=== PATIENT | male | born 1955 | race Caucasian/White ===

== ENCOUNTER 2025-01-25 15:44 | Emergency (ER) | payer MEDICARE, SELFPAY ==
[2025-01-25] VITALS (25 sets, daily range): BP systolic 109–130; BP diastolic 55–84; PULSE 84–146; RESP 18–27; TEMP 36.3–36.9; O2SAT 92–99
--- NOTE | ~2025-01-25 | XR_ITS ---
CHEST RADIOGRAPH CLINICAL HISTORY: onset today, dizziness/ weakness . COMPARISON: None available TECHNIQUE: Single portable view of the chest. FINDINGS The cardiomediastinal silhouette is unremarkable. The lungs are clear. Visualized osseous structures and soft tissues are unremarkable. IMPRESSION: No focal infiltrate or effusion. Reviewed, dictated and finalized at location A.
--- NOTE | 2025-01-25 15:46 | ECG_ITS ---
Test Date: 2025-01-25 15:56:13 Measurements Intervals [place] Rate: 126 P: 35 PA: 158 QRS: -6 QRSD: 106 T: 33 QT: 325 QTc: 472 Interpretive Statements SINUS TACHYCARDIA WITH FREQUENT VENTRICULAR PREMATURE COMPLEXES VENTRICULAR COUPLET AND RUN OF VENTRICULAR TACHYCARDIA BASELINE ARTIFACT- I, II, AVR, AVL, AVF ABNORMAL ECG No previous ECG available for comparison Electronically Signed On 01-26-2025 06:25:00 CDT by Ridge Hernandez D.O.
--- NOTE | 2025-01-25 15:52 | ED_ITS ---
HPI - Arrhythmia/Palpitations General Chief Complaint: Dizziness Stated Complaint: reaction to meds Time Seen by Provider: 01/25/25 15:46 Source: patient Mode of arrival: ambulatory Limitations: no limitations History of Present Illness HPI narrative: Patient is a 69-year-old male with new onset palpitations and dizziness after he started taking a new BPH medication. Today was his 1st dose. It started a few hours after starting the dose and having the symptoms. No chest pain or shortness of breath. MD complaint: rapid heart beat, heart racing and palpitations Onset (ago): day(s) ( One) Duration: constant Severity: mild Context: occurred during rest, occurred during exertion and change in medication ( new BPH medicine correlates time frame with symptoms) Arrhythmia history: other ( none) Associated symptoms: denies other symptoms Treatments prior to arrival: other ( none) Related Data Allergies Allergy/AdvReac Type Severity Reaction Status Date / Time diphenhydramine (From Allergy Intermediate Hives Verified 01/25/25 15:50 Benadryl) Sulfa (Sulfonamide Allergy Intermediate Rash Verified 01/25/25 15:50 Antibiotics) Review of Systems 2 Review of Systems: All systems reviewed & are unremarkable except as noted in HPI and below Constitutional: Constitutional: Reports no additional constitutional complaints Eyes: Eyes: Reports no additional eye complaints ENT: Reports system reviewed and no additional complaints, except as documented Cardiovascular: Cardiovascular: Reports no additional cardiovascular complaints Respiratory: Respiratory: Reports no additional respiratory complaints Gastrointestinal: Gastrointestinal: Reports no additional gastrointestinal complaints Genitourinary: Genitourinary: Reports no additional male genitourinary complaints Musculoskeletal: Musculoskeletal: Reports no additional musculoskeletal complaints Integumentary/Breasts: Skin/Breast: Reports system reviewed and no additional complaints, except as docu Neurologic: Reports system reviewed and no additional complaints, except as documented Psychiatric: Psychiatric: Reports no additional psychiatric complaints Endocrine: Endocrine: Reports no additional endocrine complaints Hematologic/Lymphatic: Hematologic/Lymphatic: Reports no additional hematologic/lymphatic complaints Allergic/Immunologic: Allergic/Immunologic: Reports no additional allergic/immunologic complaints Exam 2 Const: General: healthy appearing Nutritional Appearance: well nourished Orientation/consciousness: patient oriented x3 Limitations: no limitations HENMT: Head: normal to inspection Ears: external ears normal F zohaib/Nose/Sinus: Normal external nose present Eyes: Conjunctivae: conjunctivae normal Pupils: Equal, round and reactive pupils present EOM: EOMs intact bilaterally Neck: Neck: normal visual inspection Chest: Chest palpation & inspection: normal inspection of the chest Resp: Effort & Inspection: normal respiratory effort and not labored A uscultation: clear to auscultation bilaterally and no crackles Cardio: Rate: tachycardic Rhythm: regular rhythm Heart sounds: Murmur heart sound present ( known) GI: Inspection: non-distended GI Palp: Yes Soft to palpation and No Tenderness to palpation present (GI) Auscultation: normal bowel sounds : General: Yes bladder normal to palpation Back/Spine/Pelvis: Back: no CVA tenderness Skin: General skin exam: normal color Rashes: no rashes Wounds: no wounds Neuro: General: patient oriented x3 Cranial nerves: Yes Nystagmus not present Speech: normal speech Gait exam (Neuro): Normal gait present Extrem: General: normal to inspection Psych: Mental Status: mental status grossly normal Affect: normal affect Attitude: cooperative Course Vital Signs Vital signs: Vital Signs Temperature 36.3 C L 01/25/25 15:46 Pulse Rate 84 01/25/25 15:46 Respiratory Rate 18 01/25/25 15:46 Blood Pressure 117/84 01/25/25 15:46 Pulse Oximetry 98 01/25/25 15:46 Oxygen Delivery Room Air 01/25/25 15:46 Temperature 36.3 C L 01/25/25 15:46 Pulse Rate 106 H 01/25/25 17:25 Respiratory Rate 19 01/25/25 16:16 Blood Pressure 118/55 L 01/25/25 16:16 Pulse Oximetry 98 01/25/25 16:16 Oxygen Delivery Room Air 01/25/25 15:46 MDM - Arrhythmia/Palpitations MDM Narrative Medical decision making narrative: patient is a 69-year-old male with palpitations and dizziness after starting his new BPH medication today. We will do a cardiovascular workup at this time. patient is having bigeminy and trigeminy and wide complex tachycardia mixed with normal sinus rhythm; we will call Cardiology for further evaluation and planning. Cardiology at [facility] suggested Toprol 50 mg daily and follow up with their group in the next week for ultrasound echocardiogram. Lab Data Attestation: I reviewed the patient's lab results. 01/25/25 16:29 01/25/25 16:29 Labs: Lab Results 01/25/25 Range/Units 16:29 WBC 10.5 (4.8-10.8) K/mm3 RBC 4.22 L (4.70-6.10) M/mm3 Hgb 13.1 (12.4-15.3) g/dL Hct 39.8 (37.0-46.0) % MCV 94.3 (78.0-102.0) fL MCH 31.0 (27.0-31.0) pg MCHC 32.9 (32-36) g/dL RDW 13.1 (11.6-14.4) % Plt Count 204 (150-420) K/mm3 MPV 9.9 (8.7-11.0) fl Immature Gran % (Auto) 0.6 H (0.0-0.0) % Neut % (Auto) 69.6 (50.0-70.0) % Lymph % (Auto) 20.8 (18.0-42.0) % Glenn % (Auto) 7.3 (2.0-11.0) % Eos % (Auto) 0.8 L (1.0-6.0) % Baso % (Auto) 0.9 (0.0-1.0) % Lymph # (Auto) 2.18 (1.10-4.50) K/mm3 Glenn # (Auto) 0.76 (0.10-0.90) K/mm3 Eos # (Auto) 0.08 (0.02-0.50) K/mm3 Baso # (Auto) 0.09 (0.00-0.10) K/mm3 Abs Immat Gran (auto) 0.06 H (0.00-0.00) K/mm3 Absolute Neuts (auto) 7.30 H (1.70-7.20) K/mm3 Absolute Nucleated RBC 0.00 (0.00-0.00) K/mm3 Nucleated RBC % 0.0 (0-0.0) % PT 11.1 (9.50-12.1) Seconds INR 1.0 APTT 24.8 (23.9-30.70) Sec Sodium 139 (136-145) mmol/L Potassium 4.0 (3.5-5.1) mmol/L Chloride 103 (98-108) mmol/L Carbon Dioxide 28 (21-32) mmol/L Anion Gap 8 (4-12) mmol/L BUN 15 (7-18) mg/dL Creatinine 1.11 (0.70-1.30) mg/dL Estim Creat Clear Calc 56 ml/min Estimated GFR > 60 (59 - ) Glucose 113 H (70-99) mg/dL Calculated Osmolality 289 (285-295) mOsm/kg Calcium 8.8 (8.5-10.1) mg/dL Magnesium 2.0 (1.8-2.4) mg/dL Total Bilirubin 0.6 (0.00-1.00) mg/dL AST 18 (15-37) U/L ALT 29 (16-63) U/L Alkaline Phosphatase 87 (46-116) U/L Troponin I 6.9 (0.00-60.4) ng/L NT-Pro-B Natriuret Pep 89 (0-125) pg/mL Total Protein 6.9 (6.4-8.2) g/dL Albumin 3.8 (3.4-5.0) g/dL Urine Color Yellow (Yellow) Urine Appearance Clear (Clear) Urine pH 6.0 (5.0-8.0) Ur Specific [place] 1.015 (1.010-1.020) Urine Protein Negative (Negative) Urine Glucose (UA) Negative (Negative) Urine Ketones 1+ H (Negative) Ur Blood (Man) Negative (Negative) Urine Nitrate Negative (Negative) Urine Bilirubin Negative (Negative) Urine Urobilinogen 0.2 (0.2-1.0) mg/dL Leukocyte Esterase Rfl Negative (Negative) AR/UL Imaging Data Attestation: I personally reviewed and interpreted this imaging study as follows: Radiologist's impression: Chest x-ray is negative for acute process ECG Data EKG #1: Attestation: I personally reviewed and interpreted this ECG as follows: ECG completion date: 01/25/25 ECG completion time: 16:03 Interpretation: patient is having normal sinus rhythm to bigeminy to trigeminy and wide complex tachycardia back to normal sinus rhythm; we will discuss with Cardiology EKG Interpretation: tachycardia, ventricular tachycardia, PVCs ( bigeminy and trigeminy and wide complex tachycardia), non-specific ST changes, normal QRS, widened QRS, normal QT and left axis Discharge Plan Discharge Clinical Impression: Ventricular bigeminy Arrhythmia Qualifiers: Arrhythmia type: unspecified cardiac arrhythmia Qualified Code(s): I49.9 - Cardiac arrhythmia, unspecified Patient Disposition: Home, Self-Care Condition: Stable Instructions: Heart Palpitations (DC), Premature Ventricular Contractions (ED) Additional Instructions: Please follow-up with the primary doctor in the next week. Please follow-up with [facility] Cardiology in the next week. You need an ultrasound of the heart which they will order for you at the appointment. You are on new blood pressure medicine at this time to stop the palpitations. I would go ahead and stop the new urology medicine and have them change it to a different variety. Patient Language: Stateless Prescriptions: New metoprolol succinate [Toprol XL] 50 mg tablet extended release 24 hr 50 mg PO DAILY Qty: 30 0RF Follow-up/Referrals: UNKNOWN,DOCTOR [Non-Staff] - Time of Disposition: 17:59
[2025-01-25] MEDS: SODIUM CHLORIDE 0.9% IV 1,000 ML 999 ML IV CONT (16:08)
--- OUTSIDE RECORDS SUMMARY | 2025-01-25 16:21 | XMS_ITS | Encounter Summary ---
Author Organization [facility] Address [address] [address] Phone Care Team Providers Care Nail Artist Name Role Phone Hank Cheng MD Primary Care Provider [phone] Bronson Pham APRN, [employer] Unavailable [phone] Lurdes Jin MD Unavailable [phone] Reason for Visit * Reason Comments Medication Refill Encounter Details Date Type Department Care Team (Late st Contact Info) Description 01/28/2024 Refill [facility] - Internal Medicine - [place] [address] [place] [id number] Hank Cheng MD [address] [place] [address] Medication Refill Social History Tobacco Use Types Packs/Day Years Used Date Smoking Tobacco: Never Passive Smoke Exposure: Never Smokeless Tobacco: Never Alcohol Use Standard Drinks/Week Comments Not Currently 0 (1 standard drink = 0.6 oz pur e alcohol) [facility] Utilities Answer Date Recorded In the past 12 months has [employer] - [employer], [employer], oil, or water [employer] threatened to shut off services in your home? No 01/10/2024 Social Connection and Isolat ion Panel [NHANES] Answer Date Recorded In a typical week, how many times do you talk on the phone with family, friends, or neighbors? More than three times a week 01/10/2024 How often do you get togethe r with friends or relatives? More than three times a week 01/10/2024 How often do you attend chur or synagogue services? Never 01/10/2024 Do you belong to any clubs o r organizations such as scientologist groups, unions, fraternal or athletic groups, or school groups? No 01/10/2024 How often do you attend meet ings of the clubs or organizations you belong to? Never 01/10/2024 Are you , , di vorced, , never , or living with a partner? 01/10/2024 AUDIT-C Answer Date Recorded Q1: How often do you have a drink containing alcohol? Never 01/10/2024 Q2: How many drinks containi ng alcohol do you have on a typical day when you are drinking? Patient does not drink Q3: How often do you have si x or more drinks on one occasion? Never 01/10/2024 Overall Financial Resource Strain (CARDIA) Answe r Date Recorded How hard is it for you to pa y for the very basics like food, housing, medical care, and heating? Not hard at all 01/10/2024 PHQ-2 Answer Date Recorded Total Score - Questions 1-9 0 12/21 [facility] - Occupational Stress Questionnaire Answer Date Recorded Do you feel stress - tense, restless, nervous, or anxious, or unable to sleep at night because your mind is troubled all the time - these days? Not at all 01/10/2024 Exercise Vital Sign Answer Date Recorde d On average, how many days pe r week do you engage in moderate to strenuous exercise (like a brisk walk)? 0 days 01/10/2024 On average, how many minutes do you engage in exercise at this level? 0 min 01/10/2024 Hunger Vital Sign Answer Date Recorded Within the past 12 months, y ou worried that your food would run out before you got the money to buy more. Never true 01/10/20 24 Within the past 12 months, t he food you bought just didn't last and you didn't have money to get more. Never true 01/10/2024 PRAPARE - Transportation Answer Date Re corded In the past 12 months, has l ack of transportation kept you from medical appointments or from getting medications? No 12/21 In the past 12 months, has l ack of transportation kept you from meetings, work, or from getting things needed for daily living? No 01/10/2024 Housing Stability Vital Sign Answer Jeff e Recorded In the last 12 months, was t here a time when you were not able to pay the mortgage or rent on time? No 01/10/2024 In the last 12 months, how many places have you lived? 2 01/10/2024 In the last 12 months, was t here a time when you did not have a steady place to sleep or slept in a assisted (including now)? No 01/10/2024 Sexually Active Control Partners Comments Not Currently Sex and Gender Information Value Date Recorded Sex Assigned at Not on file Legal Sex Male 7:42 PM CDT Gender Identity Not on file Sexual Orientation Not on file documented as of this encounter Miscellaneous Notes * Telephone Encounter - Kourtney Rocha RN - 01/28/2024 1:04 PM CDT Medication(s) refilled and signed per [facility] Chronic Medication Refill Standing Order for Pediatricand Adult Patients. Requested Prescriptions Pending Prescriptions Disp Refills omeprazole (PriLOSEC) 20 MG CAPSULE DELAYED RELEASE [Pharmacy Med Name: OMEPRAZOLE 20MG CAPSULE DR]90 Capsule 1 Sig: TAKE ONE (1) CAPSULE BY MOUTH DAILY. Proton Pump Inhibitors Protocol Passed - 01/28/2024 12:11 PM Passed - Visit with relevant provider in past 12 months or upcoming 90 days Recent Visits Date Type Provider Dept 01/10/24 Office Visit Hank Cheng MD [facility] 07/18/23 Office Visit Sheron Bal PAC [facility] 05/16/23 Office Visit Hank Cheng MD [facility] Showing recent visits within past 365 days and meeting all other requirements Future Appointments No visits were found meeting these conditions. Showing future appointments within next 90 days and meeting all other requirements Refused Prescriptions Disp Refills tadalafil (CIALIS) 20 MG Tablet [Pharmacy Med Name: TADALAFIL 20MG TABLET] 10 Tablet 2 Si/2- 1 TAB BY MOUTH EVERY 3 DAYS NEEDED FOR ERECTION Erectile Dysfunction Medication Protocol Failed - 01/28/2024 12:11 PM Failed - Active on medication list Failed - Absence of nitrates on med list Failed - Erectile dysfunction on problem list Passed - Visit with relevant provider in past 12 months or upcoming 90 days Recent Visits Date Type Provider Dept 01/10/24 Office Visit Hank Cheng MD [facility] 07/18/23 Office Visit Sheron Bal PAC [facility] 05/16/23 Office Visit Hank Cheng MD [facility] Showing recent visits within past 365 days and meeting all other requirements Future Appointments No visits were found meeting these conditions. Showing future appointments within next 90 days and meeting all other requirements documented in this encounter Plan of Treatment Upcoming Encounters Date Type Department Care Team (Late st Contact Info) Description 05/01/2025 9:45 AM CDT Office Visit [facility] [address] [place] [address] Lurdes Jin MD [address] [address] 07/15/2025 11:30 AM CDT Office Visit [facility] - Internal Medicine [place] [address] [place] [id number] Hank Cheng MD [address] [place] [address] documented as of this encounter Visit Diagnoses Not on filedocumented in this encounter Additional Health Concerns Assessment Noted Time PHQ-9 Depression Total Score: 0 01/10/20 9:41 AM CDT documented as of this encounter Care Teams Nail Artist Relationship Specialty Start Date End Date Hank Cheng MD [address] [place] [address] PCP - General Internal Medicine 08/24/20 Bronson Pham, MATHS TUTOR, [employer] [address] [place] [address] Nurse Practitioner Advanced Practice Nurse 08/21/24 Lurdes Jin MD [address] [facility] [address] [place] [address] Consulting Physician Urology 01/22/25 documented as of this encounter
--- OUTSIDE RECORDS SUMMARY | 2025-01-25 16:21 | XMS_ITS | Clinical Summary ---
Author Organization [facility] Address [address] [address] Phone Care Team Providers Care Chain Saw Driver Name Role Phone Hank Cheng MD Primary Care Provider [phone] Bronson Pham APRN, LOCUM TENENS PSYCHIATRIST Unavailable [phone] Lurdes Jin MD Unavailable [phone] Allergies Active Allergy Reactions Criticality Noted Date Comments Diphenhydramine Rash 06/19/2011 Hydroxyzine Other (see Comments) 08/26/2024 Constipate pt Metoclopramide Unknown 08/26/2024 Constipate Sulfa Antibiotics Rash Medium 06/19/2011 Other reaction(s): Flushing (skin), Wheezing Zinc Other (see Comments) 08/26/2024 Rash Medications albuterol 108 (90 Base) MCG/ACT Aerosol Solution take 2 Puffs by inhalation every 4 hours as needed for Wheezing. 18 g 08/24/20 20 Active aspirin EC 81 MG Tablet Delayed Response Take 81 mg by mouth. Active Multiple Vitamin (MULTI-VITAMIN PO) Take by mouth. Activ e Ascorbic Acid (VITAMIN C PO) Take by mouth. Active nitroGLYCERIN (NITROSTAT) 0.3 MG SL Tablet 1 Tablet by Sublingual route every 5 minutes as needed for Chest pain. 20 Tablet 09/12/20 21 Active Vitamin E (TOCOPHEROL) 90 MG (200 UNIT) Capsule Take 90 mg by mouth daily. Active tadalafil (CIALIS) 20 MG Tablet Take 1 Tablet by mouth every 72 hours as needed for Erectile Dysfunction. 10 Tablet 5 01/31/20 24 Active omeprazole (PriLOSEC) 20 MG CAPSULE DELAYED RELEASE TAKE ONE (1) CAPSULE BY MOUTH DAILY. 90 Capsule 1 08/08/20 24 Active tamsulosin (FLOMAX) 0.4 MG CapsuleIndicat ions:Elevated PSA,Incomplete bladder emptying Take 1 Capsule by mouth daily. 30 Capsule 1 08/26/20 24 Active rosuvastatin (CRESTOR) 5 MG Tablet TAKE ONE TABLET BY MOUTH EVERY EVENING 90 Tablet 1 01/07/20 25 Active losartan (COZAAR) 25 MG Tablet TAKE ONE (1) TABLET BY MOUTH DAILY. 90 Tablet 1 01/07/20 25 Active alfuzosin (UROXATRAL) 10 MG TABLET SR 24 HR Take 1 Tablet by mouth daily (with breakfast) for 30 days. 30 Tablet 01/24/20 25 025 Active rosuvastatin (CRESTOR) 5 MG Tablet TAKE ONE TABLET BY MOUTH EVERY EVENING 90 Tablet 1 03/14/20 24 025 Discontinued losartan (COZAAR) 25 MG Tablet TAKE ONE (1) TABLET BY MOUTH DAILY. 90 Tablet 1 10/16/20 24 025 Discontinued Active Problems Problem Noted Date Diagnosed Date Elevated PSA 01/12/2025 Essential hypertension, benign 08/16/2022 Mild intermittent asthma without complication Overview (04/26/2021): Continue p.r.n. albuterol. Gastro-esophageal reflux disease without esophag itis 05/17/2017 Other hyperlipidemia 06/19/2011 Resolved Problems Problem Noted Date Diagnosed Date Resolved Date Acute bronchitis 01/10/2024 01/10/2024 Dyspnea 08/31/2020 10/25/2020 Mild persistent asthma without complication 08/31/2020 04/26/2021 Encounters Date Type Department Care Team Description 01/23/2025 12:45 PM CDT Office Visit [facility] [place] [address] Lurdes Jin MD Elevated PSA (Primary Dx) Discharge Disposition: Discharged to home or Selfcare 01/23/2025 Travel 01/20/2025 Telephone [facility] [address] [place] [address] Lurdes Jin MD 01/12/2025 11:15 AM CDT [facility] Visit [facility] [address] [place] [address] Hank Cheng MD Essential hypertension, benign (Primary Dx); Other hyperlipidemia; Mild intermittent asthma without complication; Gastro-esophageal reflux disease without esophagitis; Elevated PSA Discharge Disposition: Discharged to home or Selfcare 01/12/2025 Travel 01/07/2025 Telephone [facility] [address] [place] [address] Lurdes Jin MD 01/06/2025 Refill [facility] Internal Medicine [facility] [address] [place] [address] Sheron Bal PAC Medication Refill from Last 3 Months Immunizations Immunization Administration Dates Next Due Covid-19, Mrna, Lnp-s, PF, 1 00 mcg/0.5 mL Dose (Moderna) 02/23/2021 Influenza Vaccine 07/07/2013 Influenza Vaccine, Quadrivalent, PF 08/16/2022 Influenza, Quadrivalent, Adjuvanted 07/18/2023 Influenza, Trivalent, Adjuvanted, PF 07/16/2024 Pneumococcal conjugate PCV20 , polysaccharide [id number] conjugate, adjuvant, PF 08/16/2022 TDAP Vaccine 11/26/2023 Family History Relation Name Status Comments Father Mother Social History Tobacco Use Types Packs/Day Years Used Date Smoking Tobacco: Never Passive Smoke Exposure: Never Smokeless Tobacco: Never Tobacco Cessation:Counseling Given: Not Answered Alcohol Use Standard Drinks/Week Comments Not Currently 0 (1 standard drink = 0.6 oz pur e alcohol) [facility] [employer] Answer Date Recorded In the past 12 months has [employer], gas, oil, or water [employer] threatened to shut off services in your [...] 01/10/2024 How often do you attend chur ch or jainism services? Never 01/10/2024 Do you belong to any clubs o r organizations such as gnosticism groups, unions, fraternal or athletic groups, or [...] Total Score - Questions 1-9 0 12/21 [facility] - Occupational Stress Questionnaire Answer Date Recorded [...] medical appointments or from getting medications? No 03/2 10/2023 In the past 12 months, has l [...] place to sleep or slept in a group home (including now)? No 01/10/2024 Sexually Active Control Partners Comments Not Currently Sex and Gender Information Value Date Recorded Sex Assigned at Not on file Legal Sex Male 7:42 PM CDT Gender Identity Not on file Sexual Orientation Not on file Last Filed Vital Signs Vital Sign Reading Time Taken Comments Blood Pressure 161/83 01/23/2025 12:47 PM CDT Pulse 74 01/23/2025 12:47 PM CDT Temperature 36.6 C (97.9 F) 01/12/2025 11:03 AM CDT Respiratory Rate 14 01/23/2025 12:47 PM CDT Oxygen Saturation 96% 01/23/2025 12:47 PM CDT Inhaled Oxygen Concentration - - Weight 88.9 kg (196 lb) 01/23/2025 12:47 PM CDT Height 165.1 cm (5' 5 ) 01/23/2025 12:47 PM CDT Body Mass Index 32.62 01/23/2025 12:47 PM CDT Plan of Treatment Upcoming Encounters Date Type Department Care Team (Late st Contact Info) Description 05/01/2025 9:45 AM CDT Office Visit [facility] [address] [place] [address] Lurdes Jin MD [address] [address] 07/15/2025 11:30 AM CDT [facility] Visit [facility] [place] [address] [place] [address] Hank Cheng MD [address] [place] [address] Health Maintenance Due Date Last Done Comments Hepatitis C Virus (HCV) Screening 1955 Cologuard 2003 Immunochemical Fecal Occult Blood 2003 SARS-COV-2 Immunization ( season) 2025 08/13/2024, 11/02/2021, 03/23/2021, Additional history exists Colonoscopy 06/04/2029 06/04/2019, 06/04/2019 Colorectal Cancer Screening 06/04/2029 Td Immunization Every 10 Years (Adults With 1 Tdap) 11/26/2033 11/26/2023 06/04/2019, 06/04/2019 Pneumococcal Immunization (50+ years) Completed 08/16/2022 Pneumococcal Immunization Combined Discontinued 08/16/2022 Zoster Immunization Completed 07/18/2023, 3 DTaP/Tdap/Td Immunization Discontinued 11/26/2023 Influenza Immunization Completed 4, 07/18/2023, 08/16/2022, Additional history exists Respiratory Syncytial Virus (RSV) Immunization (Adult) Completed 07/18/2024 PSA Discussion Discontinued 09/16/2024, 06/2024, 08/17/2022, Additional history exists Hepatitis B Immunization Aged Out No longer eligible based on patient's age to complete this topic Meningococcal Immunization (ACWY) Aged Out No longer eligible based on patient's age to complete this topic Rotavirus Immunization Aged Out No lo nger eligible based on patient's age to complete this topic Procedures Procedure Name Priority Date/Time Associated Diagnosis Comments PSA DIAGNOSTIC,TOTAL Routine 09/16/2024 8:32 AM ZONE SUPERVISOR FIREARMS Elevated PSA HM COLONOSCOPY Routine 06/04/2019 from Last 3 Months or Most Recently Relevant to Health Maintenance Results * (ABNORMAL) PSA DIAGNOSTIC,TOTAL (09/16/2024 8:32 AM ZONE SUPERVISOR FIREARMS) PSA, TOTAL (PROSTATIC SPECIFIC ANTIGEN) 7.85(H) <4.00 ng/mL 09/16/2024 4:00 PM ZONE SUPERVISOR FIREARMS [facility] Blood Venipuncture / Unknown 09/16/2024 8:32 AM ZONE SUPERVISOR FIREARMS 09/16/2024 8:32 AM ZONE SUPERVISOR FIREARMS Narrative [facility] - 09/16/2024 4:00 PM ZONE SUPERVISOR FIREARMS PSA NOTE: The PSA value should be used in conjunction with information available from clinical evaluation and other diagnostic procedures. The [employer] Total PSA assay is a Chemiluminescent Microparticle Immunoassay (CMIA) for the quantitative determination of total PSA (both free PSA and PSA complexed to [id number]) in human serum. Total PSA values obtained with different assay methods, including St PSA assays, cannot be used interchangeably. us Bronson Pham APRN, LOCUM TENENS PSYCHIATRIST CHEMISTRY ORDERABLES F inal Result [facility] [place] [address] * COLONOSCOPY (06/04/2019) Hank Cheng MD PROCEDURE/MINOR SURGICAL OR DERABLES Final Result from Last 3 Months or Most Recently Relevant to Health Maintenance Insurance MEDICARE C AETNA Care Teams Chain Saw Driver Relationship Specialty Start Date End Date Hank Cheng MD [address] [place] [address] PCP - General Internal Medicine 08/24/20 Bronson Pahm APRN, LOCUM TENENS PSYCHIATRIST [address] [place] [address] Nurse Practitioner Advanced Practice Nurse 08/21/24 Lurdes Jin MD [address] [address] Consulting Physician Urology 01/22/25
--- OUTSIDE RECORDS SUMMARY | 2025-01-25 16:21 | XMS_ITS | Encounter Summary ---
Author Organization [facility] Address [address] [place] [address] Phone Care Team Providers Care Hr Clerk Name Role Phone Hank Cheng MD Primary Care Provider [phone] Bronson Pham APRN, DEPUTY HEAD Unavailable [phone] Lurdes Jin MD Unavailable [phone] Reason for Visit * Reason Comments Medication Refill Encounter Details Date Type Department Care Team (Late st Contact Info) Description 03/12/2024 Refill [facility] [place] [address] [place] [address] Hank Cheng MD [address] [place] [address] Medication Refill Social History Tobacco Use Types Packs/Day Years Used Date Smoking Tobacco: Never Passive Smoke Exposure: Never Smokeless Tobacco: Never Alcohol Use Standard Drinks/Week Comments Not Currently 0 (1 standard drink = 0.6 oz pur e alcohol) [facility] Utilities Answer Date Recorded In the past 12 months has [employer], [employer], oil, or water [employer] threatened to shut off services in your [...] How often do you attend chur or rastafarian services? Never 01/10/2024 Do you belong to any clubs o r organizations such as druze groups, unions, fraternal or athletic groups, or [...] Total Score - Questions 1-9 0 12/21 [facility] - Occupational Stress Questionnaire Answer Date Recorded [...] place to sleep or slept in a nursing home (including now)? No 01/10/2024 Sexually Active Control Partners Comments Not Currently Sex and Gender Information Value Date Recorded Sex Assigned at Not on file Legal Sex Male 7:42 PM CDT Gender Identity Not on file Sexual Orientation Not on file documented as of this encounter Miscellaneous Notes * Telephone Encounter - Kourtney Rocha RN - 03/13/2024 8:39 AM CDT Medication failed the protocol, provider to review and approve the medication order if appropriate. Requested Prescriptions Pending Prescriptions Disp Refills rosuvastatin (CRESTOR) 5 MG Tablet [Pharmacy Med Name: ROSUVASTATIN CALCIUM 5MG TABLET] 90 Tablet 1 Sig: TAKE ONE TABLET BY MOUTH EVERY EVENING Hmg CoA Reductase Inhibitors Protocol Failed - 03/12/2024 6:44 PM Failed - Lipid panel in past 12 months LDL Date Value Ref Range Status 08/17/2022 93 0 - 130 mg/dL Final Failed - CMP in past 12 months No results found for: SODIUM , POTASSIUM , CHLORIDE , CO2VEN , ANIONGAP , GLUCOSE , BUN , CREATININE , BCRATIO8 , TOTALPROTEIN , ALBUMIN , AGRT , AGRATIO , CALCIUM , TBIL , SGOTAST , SGPTALT , ALKALINEPHO , GFRNA , GFRA , GFRES , CMPREQFAST , CMPFAST Passed - Visit with relevant provider in past 12 months or upcoming 90 days Recent Visits Date Type Provider Dept 01/10/24 Office Visit [facility] 07/18/23 Office Visit Sheron Bal PAC [facility] 05/16/23 Office Visit Hank Cheng MD [facility] Showing recent visits within past 365 days and meeting all other requirements Future Appointments No visits were found meeting these conditions. Showing future appointments within next 90 days and meeting all other requirements documented in this encounter Plan of Treatment Upcoming Encounters Date Type Department Care Team (Late st Contact Info) Description 05/01/2025 9:45 AM CDT Office Visit [facility] [address] [place] [address] Lurdes Jin MD [address], [facility] [address] [place] [address] 07/15/2025 11:30 AM CDT Office [facility] [address] [place] [address] Hank Cheng MD [address] [place] [address] documented as of this encounter Visit Diagnoses Not on filedocumented in this encounter Additional Health Concerns Assessment Noted Time PHQ-9 Depression Total Score: 0 01/10/20 24 9:41 AM CDT documented as of this encounter Care Teams Hr Clerk Relationship Specialty Start Date End Date Hank Cheng MD [address] [place] [address] PCP - General Internal Medicine 08/24/20 Bronson Pham APRN, DEPUTY HEAD [address] [place] [address] Nurse Practitioner Advanced Practice Nurse 08/21/24 Lurdes Jin MD [address], [facility] [address] [place] [address] Consulting Physician Urology 01/22/25 documented as of this encounter
--- OUTSIDE RECORDS SUMMARY | 2025-01-25 16:21 | XMS_ITS | Encounter Summary ---
Author Organization [facility] Address [address] [place] [address] Phone Care Team Providers Care Sales And Marketing Intern Name Role Phone Hank Cheng MD Primary Care Provider [phone] Bronson Pham APRN, FLAT SHEET MAKER Unavailable [phone] Lurdes Jin MD Unavailable [phone] Encounter Details Date Type Department Care Team (Late st Contact Info) Description 01/20/2025 Telephone [facility] [address] [place] [address] Lurdes Jin MD [address] [address] Social History Tobacco Use Types Packs/Day Years Used Date Smoking Tobacco: Never Passive Smoke Exposure: Never Smokeless Tobacco: Never Alcohol Use Standard Drinks/Week Comments Not Currently 0 (1 standard drink = 0.6 oz pur e alcohol) [facility] Utilities Answer Date Recorded In the past 12 months has [employer], gas, oil, or water [employer] threatened to shut off services in your [...] often do you attend chur ch or alevism services? Never 01/10/2024 Do you belong to any clubs o r organizations such as christianity groups, unions, fraternal or athletic groups, or [...] Total Score - Questions 1-9 0 12/21 [facility] - Occupational Stress Questionnaire Answer Date [...] on file documented as of this encounter Plan of Treatment Upcoming Encounters Date Type Department Care Team (Late st Contact Info) Description 05/01/2025 9:45 AM CDT Office Visit [facility] [address] [place] [address] Lurdes Jin MD #[address] [address] 07/15/2025 11:30 AM CDT Office Visit [facility] [place] [address] [place] [address] Hank Cheng MD [address] [place] [address] documented as of this encounter Visit Diagnoses Not on filedocumented in this encounter Additional Health Concerns Assessment Noted Time PHQ-9 Depression Total Score: 0 01/13/20 25 11:05 AM CDT documented as of this encounter Care Teams Sales And Marketing Intern Relationship Specialty Start Date End Date Hank Cheng MD [address] [place] [address] PCP - General Internal Medicine 08/24/20 Bronson Pham, FINANCIAL PROCESSING CLERK, FLAT SHEET MAKER [address] [place] [address] Nurse Practitioner Advanced Practice Nurse 08/21/24 Lurdes Jin MD [address], [facility] [address] [place] [address] Consulting Physician Urology 01/22/25 documented as of this encounter
--- OUTSIDE RECORDS SUMMARY | 2025-01-25 16:21 | XMS_ITS | Encounter Summary ---
Author Organization [facility] Address [address] [place] [address] Phone Care Team Providers Care Visitor Information Assistant Name Role Phone Hank Cheng MD Primary Care Provider [phone] Bronson Pham APRN, CERTIFIED PERFORMANCE TECHNOLOGIST Unavailable [phone] Lurdes Jin MD Unavailable [phone] Reason for Visit * Reason Comments Medication Refill Encounter Details Date Type Department Care Team (Late st Contact Info) Description 11/23/2022 Refill [facility] [place] [address] [place] [address] Hank Cheng MD [address] [address] Medication Refill Social History Tobacco Use Types Packs/Day Years Used Date Smoking Tobacco: Never Smokeless Tobacco: Never Alcohol Use Standard Drinks/Week Comments Not Currently 0 (1 standard drink = 0.6 oz pur e alcohol) PHQ-2 Answer Date Recorded Total Score - Questions 1-9 0 01/0 01/2021 Sexually Active Control Partners Comments Not Currently Sex and Gender Information Value Date Recorded Sex Assigned at Not on file Legal Sex Male 7:42 PM CDT Gender Identity Not on file Sexual Orientation Not on file COVID-19 Exposure Response Date Recorded In the last 10 days, have yo u been in contact with someone who was confirmed or suspected to have Coronavirus/COVID-19? No / Unsure 11/15/2022 7:51 AM ASSISTANT PRODUCER documented as of this encounter Miscellaneous Notes * Telephone Encounter - Riya Lieberman RN - 11/23/2022 2:38 PM ASSISTANT PRODUCER Per nursing clinical judgement, provider to review and approve the medication(s) order(s) if appropriate. Requested Prescriptions Pending Prescriptions Disp Refills losartan (COZAAR) 25 MG Tablet [Pharmacy Med Name: LOSARTAN POTASSIUM 25MG TABLET] 30 Tablet 0 Sig: TAKE ONE (1) TABLET BY MOUTH DAILY. ARB Protocol Failed - 11/23/2022 2:29 PM Failed - Serum potassium on record in past 12 months POTASSIUM Date Value Ref Range Status 09/12/2021 4.2 3.5 - 5.1 mmol/L Final Failed - GFR on record in past 12 months GFR, EST. NONAFRICAN Date Value Ref Range Status 09/12/2021 >60 >=60 Final Passed - BP on record in the past year Clinician-entered: BP Readings from Last 3 Encounters: 11/15/22 130/78 08/16/22 136/78 10/27/21 114/62 Patient-entered: No data recorded Passed - Visit with relevant provider in past year or upcoming 90 days Recent Visits Date Type Provider Dept 11/15/22 Office Visit [facility] [place] 08/16/22 Office Visit [facility] MD [facility] 05/08/22 Telemedicine Hank Cheng MD [facility] Showing recent visits within past 365 days and meeting all other requirements Future Appointments No visits were found meeting these conditions. Showing future appointments within next 90 days and meeting all other requirements STANT PRODUCER documented in this encounter Plan of Treatment Upcoming Encounters Date Type Department Care Team (Late st Contact Info) Description 05/01/2025 9:45 AM CDT Office Visit [facility] [address] [place] [address] Lurdes Jin MD [address], [address] [address] 07/15/2025 11:30 AM CDT Office Visit [facility] [address] [place] [address] Hank Cheng MD [address] [place] [address] documented as of this encounter Visit Diagnoses Not on filedocumented in this encounter Additional Health Concerns Assessment Noted Time PHQ-9 Depression Total Score: 0 10/25/19 21 3:00 PM ASSISTANT PRODUCER documented as of this encounter Care Teams Visitor Information Assistant Relationship Specialty Start Date End Date Hank Cheng MD [address] [place] [address] PCP - General Internal Medicine 08/24/20 Bronson Pham APRN, NAVEED [address] [place] [address] Nurse Practitioner Advanced Practice Nurse 08/21/24 Lurdes Jin MD [address] [address] Consulting Physician Urology 01/22/25 documented as of this encounter
--- OUTSIDE RECORDS SUMMARY | 2025-01-25 16:21 | XMS_ITS | Encounter Summary ---
Author Organization [facility] Address [address] [place] [address] Phone Care Team Providers Care Spring Machine Operator Name Role Phone Hank Cheng MD Primary Care Provider [phone] Bronson Pham APRN, AUTOCAD DETAILER Unavailable [phone] Lurdes Jin MD Unavailable [phone] Encounter Details Date Type Department Care Team (Late st Contact Info) Description 01/07/2025 Telephone [facility] [address] [place] [address] Lurdes Jin MD [address] [address] Social History Tobacco Use Types Packs/Day Years Used Date Smoking Tobacco: Never Passive Smoke Exposure: Never Smokeless Tobacco: Never Alcohol Use Standard Drinks/Week Comments Not Currently 0 (1 standard drink = 0.6 oz pur e alcohol) [facility] Utilities Answer Date Recorded In the past 12 months has [employer], gas, oil, or water [employer] threatened to shut off services in your [...] often do you attend chur ch or latter day services? Never 01/10/2024 Do you belong to any clubs o r organizations such as tenriism groups, unions, fraternal or athletic groups, or [...] Total Score - Questions 1-9 0 12/21 [facility] Occupat ional [facility] - Occupational Stress Questionnaire Answer Date [...] place to sleep or slept in a long-term (including now)? No 01/10/2024 Sexually Active Control Partners Comments Not Currently Sex and Gender Information Value Date Recorded Sex Assigned at Not on file Legal Sex Male 7:42 PM CDT Gender Identity Not on file Sexual Orientation Not on file documented as of this encounter Miscellaneous Notes * Telephone Encounter - Alejandra Vasquez - 01/08/2025 9:25 AM CDT OV scheduled 01/23/25 * Telephone Encounter - Amrita Story - 01/08/2025 8:11 AM CDT Message left for pt to call back. * Telephone Encounter - Lurdes Jin MD - 01/07/2025 12:48 PM CDT OV in 2 weeks documented in this encounter Plan of Treatment Upcoming Encounters Date Type Department Care Team (Late st Contact Info) Description 05/01/2025 9:45 AM CDT Office Visit [facility] [address] [place] [address] Lurdes Jin MD [address], [address] [address] 07/15/2025 11:30 AM CDT [facility] Visit [facility] - [place] [address] [place] [address] Hank Cheng MD [address] [place] [address] documented as of this encounter Visit Diagnoses Not on filedocumented in this encounter Additional Health Concerns Assessment Noted Time PHQ-9 Depression Total Score: 0 01/10/20 24 9:41 AM CDT documented as of this encounter Care Teams Spring Machine Operator Relationship Specialty Start Date End Date Hank Cheng MD [address] [place] [address] PCP - General Internal Medicine 08/24/20 Bronson Pham APRN, NAVEED [address] [place] [address] Nurse Practitioner Advanced Practice Nurse 08/21/24 Lurdes Jin MD [address] [address] Consulting Physician Urology 01/22/25 documented as of this encounter
--- OUTSIDE RECORDS SUMMARY | 2025-01-25 16:21 | XMS_ITS | Encounter Summary ---
Author Organization [facility] Address [address] [place] [address] Phone Care Team Providers Care Assistant Professor Of German Name Role Phone Hank Cheng MD Primary Care Provider [phone] Bronson Pham APRN, SOFTWARE APPLICATION TESTER Unavailable [phone] Lurdes Jin MD Unavailable [phone] Reason for Visit * Reason Comments Medication Refill Encounter Details Date Type Department Care Team (Late st Contact Info) Description 09/25/2022 Refill [facility] - Internal Medicine - [place] [address] [place] [address] Hank Cheng MD [address] [place] [address] Medication Refill Social History Tobacco [...] encounter Miscellaneous Notes * Telephone Encounter - Maru Larose RN - 09/25/2022 1:34 PM CST Medication failed the protocol, provider to review and approve the medication order if appropriate. Requested Prescriptions Pending Prescriptions Disp Refills losartan (COZAAR) 25 MG Tablet [Pharmacy Med Name: LOSARTAN POTASSIUM 25MG TABLET] 30 Tablet 0 Sig: TAKE ONE (1) TABLET BY MOUTH DAILY. ARB Protocol Failed - 09/25/2022 1:19 PM Failed - Serum potassium on record in past 12 months POTASSIUM Date Value Ref Range Status 09/12/2021 4.2 3.5 - 5.1 mmol/L Final Failed - GFR on record in past 12 months GFR, EST. NONAFRICAN Date Value Ref Range Status 09/12/2021 >60 >=60 Final Passed - BP on record in the past year Clinician-entered: BP Readings from Last 3 Encounters: 08/16/22 136/78 10/27/21 114/62 09/26/21 134/78 Patient-entered: No data recorded Passed - Visit with relevant provider in past year or upcoming 90 days Recent Visits Date Type Provider Dept 08/16/22 Office Visit Hank Cheng MD [facility] [place] 05/08/22 Telemedicine Hank Cheng MD [facility] [place] 10/27/21 Office Visit Hank Cheng MD [facility] [place] 09/26/21 [facility] [place] Showing recent visits within past 365 days and meeting all other requirements Future Appointments Date Type Provider Dept 11/15/22 Appointment Hank Cheng MD [facility] [place] Showing future appointments within next 90 days and meeting all other requirements [employer] documented in this encounter Plan of Treatment Upcoming Encounters Date Type Department Care Team (Late st Contact Info) Description 05/01/2025 9:45 AM CDT Office Visit [facility] [address] [place] [id number] Lurdes Jin MD [address], [address] [address] 07/15/2025 11:30 AM CDT Office Visit [facility] - Internal Medicine - [place] [address] [place] [address] Hank Cheng MD [address] [place] [address] documented as of this encounter Visit Diagnoses Not on filedocumented in this encounter Additional Health Concerns Assessment Noted Time PHQ-9 Depression Total Score: 0 10/25/19 21 3:00 PM [employer] documented as of this encounter Care Teams Assistant Professor Of German Relationship Specialty Start Date End Date Hank Cheng MD [address] [place] [address] PCP - General Internal Medicine 08/24/20 Bronson Pham APRN, [facility] [address] [facility] [place] [address] Nurse Practitioner Advanced Practice Nurse 08/21/24 Lurdes Jin MD [address] [address] Consulting Physician Urology 01/22/25 documented as of this encounter
[2025-01-25 16:48] LABS: Basophils Absolute Auto 0.09 K/mm3 (0.00-0.10); Basophils Percent Auto 0.9 % (0.0-1.0); Eosinophils Absolute Auto 0.08 K/mm3 (0.02-0.50); Eosinophils Percent Auto 0.8 % (1.0-6.0); Hematocrit 39.8 % (37.0-46.0); Hemoglobin 13.1 g/dL (12.4-15.3); Immature Granulocyte Absolute 0.06 K/mm3 (0.00-0.00); Immature Granulocyte Percent A 0.6 % (0.0-0.0); Lymphocytes Absolute Auto 2.18 K/mm3 (1.10-4.50); Lymphocytes Percent Auto 20.8 % (18.0-42.0); Mean Corpuscular HGB Conc 32.9 g/dL (32-36); Mean Corpuscular Volume 94.3 fL (78.0-102.0); Mean Platelet Volume 9.9 fl (8.7-11.0); Monocytes Absolute Auto 0.76 K/mm3 (0.10-0.90); Monocytes Percent Auto 7.3 % (2.0-11.0); Neutrophils Percent Auto 69.6 % (50.0-70.0); Platelet Count Result 204 K/mm3 (150-420); Red Blood Count 4.22 M/mm3 (4.70-6.10); Red Cell Distribution Width 13.1 % (11.6-14.4); White Blood Count 10.5 K/mm3 (4.8-10.8)
[2025-01-25 17:08] LABS: Alanine Aminotransferase 29 U/L (16-63); Albumin Level 3.8 g/dL (3.4-5.0); Alkaline Phosphatase 87 U/L (46-116); Anion Gap 8 mmol/L (4-12); Aspartate Amino Transferase 18 U/L (15-37); Bilirubin,Total 0.6 mg/dL (0.00-1.00); Blood Urea Nitrogen 15 mg/dL (7-18); Calcium 8.8 mg/dL (8.5-10.1); Carbon Dioxide 28 mmol/L (21-32); Chloride 103 mmol/L (98-108); Estimated CRCL calculation 56 ml/min; Estimated Glomerular Filt Rate > 60; Glucose 113 mg/dL (70-99); NT Pro B Type Natriuretic Pept 89 pg/mL (0-125); Osmolality Calculated 289 mOsm/kg (285-295); Sodium 139 mmol/L (136-145); Total Protein 6.9 g/dL (6.4-8.2); Troponin I 6.9 ng/L (0.00-60.4)
[2025-01-25 17:31] LABS: Add Urine Microscopic? NO; Appearance Urine Clear (Clear); Bilirubin Urine Negative (Negative); Blood Urine Negative (Negative); Color Urine Yellow (Yellow); Glucose Urine UA Negative (Negative); Ketones Urine 1+ (Negative); Leukocyte Esterase Ur Negative LEU/UL (Negative); Nitrate Urine Negative (Negative); Protein Urine Negative (Negative); Specific Grav Ur 1.015 (1.010-1.020); Urobilinogen Urine 0.2 mg/dL (0.2-1.0)
[2025-01-25 17:43] LABS: Partial Thromboplastin Time 24.8 Sec (23.9-30.70); Prothrombin Time 11.1 Seconds (9.50-12.1)
[2025-01-25] MEDS: METOPROLOL SUCCINATE EXT REL 50 MG TABCR PO (18:12)
== END 2025-01-25 18:20 | disposition home or self-care (01) ==
PROVIDERS: Emergency Provider Emergency Medicine; PCP Internal Medicine
DX: R00.8 Other abnormalities of heart beat (principal); I49.9 Cardiac arrhythmia, unspecified
CPT/HCPCS: 36415; 71045; 80053; 81003; 83735; 83880; 84484; 85025; 85610; 85730; 93005; 96360; 99284; A9270; J7030